=== PATIENT | male | born 1945 | race Two or more races ===

== ENCOUNTER 2017-11-11 10:06 | Outpatient (CLI) | payer OTHER, MEDICARE ==
[2017-11-11 11:21] LABS: CALCIUM, SERUM 9.1 mg/dL (8.5-10.1); CARBON DIOXIDE 28 mmol/L (21-32); CHLORIDE 105 mmol/L (98-107); CREATININE 1.3 mg/dL (0.6-1.3); GLUCOSE 90 mg/dL (74-106); POTASSIUM 4.6 mmol/L (3.5-5.1); SODIUM SERUM 140 mmol/L (136-145); UREA NITROGEN, BLOOD 25 mg/dL (7-18)
[2017-11-11] MEDS ORDERED: IOHEXOL-350 100 ML VIAL IV ONE (11:47)
[2017-11-11] MEDS ORDERED: CT SWABBABLE VALVE TRANS SET 1 EA INFUS.SET MC ONE (11:47)
== END 2017-11-11 23:59 | disposition home or self-care (01) ==
LOC: CT 10:06
PROVIDERS: ATTEND Internal Medicine Interventional Cardiology
DX: I25.10 Atherosclerotic heart disease of native coronary artery without angina pectoris (principal); I35.8 Other nonrheumatic aortic valve disorders
CPT/HCPCS: 36415; 75574; 80048; Q9967